=== PATIENT | female | born 1985 | race Caucasian/White ===

== ENCOUNTER 2017-01-30 13:14 | Emergency (ER) | payer BC ==
--- NOTE | 2017-01-30 13:47 | Emergency Department Record ---
History of Present Illness - General Chief Complaint: Abdominal Pain Stated Complaint: ABDOMINAL PAIN LRQ/ VAGINAL BLEEDING Time Seen by Provider: 01/30/17 13:39 Source: Patient, RN notes reviewed Mode of Arrival: Ambulatory - History of Present Illness Initial Comments: abdominal pain right upper quad, 3 weeks of right sided abd pain and vaginal bleeding and no dysuria and no diarrhea and today ate today and it didn't make the pain worse. Vaginal discharge blood. MD Complaint: Abdominal pain Onset/Timin -: Month(s) Location: RUQ, RLQ Quality: Fullness Consistency: Constant Improves With: Nothing Worsens With: Nothing - Related Data LMP Date: 01/27/17 LMP (females 10-50): This week Home Medications Medication Instructions Recorded Confirmed Last Taken Fluoxetine HCl [Prozac] 10 mg PO DAILY 01/30/17 01/30/17 01/30/17 Previous Rx's Medication Instructions Recorded Doxycycline Hyclate [Doxycycline] 100 mg PO BID #30 cap 01/30/17 Ferrous Sulfate [Feosol] 325 mg PO DAILY #30 tab 01/30/17 Naproxen [Naprosyn] 500 mg PO Q12H #20 tab. 01/30/17 Allergies Allergy/AdvReac Type Severity Reaction Status Date / Time Sulfa (Sulfonamide Allergy RASH Verified 01/30/17 13:25 Antibiotics) Travel Screening - Travel/Exposure Within Last 30 Days Have you traveled within the last 30 days?: No - Travel/Exposure Within Last Year Have you traveled outside the [place] in the last year?: No - Additonal Travel Details Have you been exposed to anyone with a communicable illness?: No - Travel Symptoms Symptom Screening: None Review of Systems Reviewed: No additional complaints except as noted below Constitutional: Reports: As per HPI. Denies: Chills, Fever, Malaise, Night sweats, Weakness, Weight change Eyes: Reports: As per HPI. Denies: Eye discharge, Eye pain, Photophobia, Vision change ENT: Reports: As per HPI. Denies: Congestion, Dental pain, Ear pain, Epistaxis , Hearing loss, Throat pain Respiratory: Reports: As per HPI. Denies: Cough, Dyspnea, Hemoptysis, Stridor, Wheezes Cardiovascular: Reports: As per HPI. Denies: Arrhythmia, Chest pain, Dyspnea on exertion, Edema, Murmurs, Orthopnea, Palpitations, Paroxysmal nocturnal dyspnea, Rheumatic Fever, Syncope Endocrine: Reports: As per HPI. Denies: Fatigue, Heat or cold intolerance, Polydipsia, Polyuria Gastrointestinal: Reports: As per HPI, Abdominal pain, Nausea. Denies: Constipation, Diarrhea, Hematemesis, Hematochezia, Melena, Vomiting Genitourinary: Reports: As per HPI. Denies: Abnormal menses, Discharge, Dyspareunia, Dysuria, Frequency, Hematuria, Incontinence, Retention, Urgency Musculoskeletal: Reports: As per HPI. Denies: Arthralgia, Back pain, Gout, Joint swelling, Myalgia, Neck pain Skin: Reports: As per HPI. Denies: Bruising, Change in color, Change in hair/ nails, Lesions, Pruritus, Rash Neurological: Reports: As per HPI. Denies: Abnormal gait, Confusion, Headache, Numbness, Paresthesias, Seizure, Tingling, Tremors, Vertigo, Weakness Psychiatric: Reports: As per HPI. Denies: Anxiety, Auditory hallucinations, Depression, Homicidal thoughts, Suicidal thoughts, Visual hallucinations Hematological/Lymphatic: Reports: As per HPI. Denies: Anemia, Blood Clots, Easy bleeding, Easy bruising, Swollen glands Past Medical History - SOCIAL HISTORY Smoking Status: Never smoker Alcohol Use: None Drug Use: None - RESPIRATORY Hx Respiratory Disorders: No - CARDIOVASCULAR Hx Cardio Disorders: No - NEURO Hx Neuro Disorders: No - GI Hx GI Disorders: No - Hx Genitourinary Disorders: No - ENDOCRINE Hx Endocrine Disorders: No - MUSCULOSKELETAL Hx Musculoskeletal Disorders: No - PSYCH Hx Psych Problems: Yes Hx Depression: Yes - HEMATOLOGY/ONCOLOGY Hx Hematology/Oncology Disorders: No Family Medical History Any Significant Family History?: Yes Hx Cancer: Grandparents Physical Exam - General General Appearance: Alert, Oriented x3, Cooperative, No acute distress - Head Head exam: Normal inspection - Eye Eye exam: Normal appearance, PERRL Pupils: Normal accommodation - ENT ENT exam: Normal exam, Mucous membranes moist, Normal external ear exam, Normal orophraynx, TM's normal bilaterally Ear exam: Normal external inspection. negative: External canal tenderness Nasal Exam: Normal inspection. negative: Discharge, Sinus tenderness Mouth exam: Normal external inspection, Tongue normal Teeth exam: Normal inspection. negative: Dental caries Throat exam: Normal inspection. negative: Tonsillar erythema, Tonsillar exudate - Neck Neck exam: Normal inspection, Full ROM. negative: Tenderness - Respiratory Respiratory exam: Normal lung sounds bilaterally. negative: Respiratory distress - Cardiovascular Cardiovascular Exam: Regular rate, Normal rhythm, Normal heart sounds - GI/Abdominal GI/Abdominal exam: Soft, Normal bowel sounds, Tenderness (right lower quad pain and radiates into the right flank) - Rectal Rectal exam: Deferred - exam: Adnexal tenderness (R), cervical motion tenderness, Normal speculum exam. negative: Abnormal external exam, Adnexal mass (L), Adnexal mass (R), Adnexal tenderness (L), Cervical discharge, Enlarged uterus, Vaginal bleeding, Vaginal discharge - Extremities Extremities exam: Normal inspection, Full ROM, Normal capillary refill. negative: Tenderness - Back Back exam: Reports: Normal inspection, Full ROM. Denies: Muscle spasm, Rash noted, Tenderness - Neurological Neurological exam: Alert, Normal gait, Oriented X3, Reflexes normal - Psychiatric Psychiatric exam: Normal affect, Normal mood - Skin Skin exam: Dry, Intact, Normal color, Warm Course Vital Signs 01/30/17 13:27 Temperature 98.8 F Pulse Rate 88 Respiratory 18 Rate Blood Pressure 127/85 Pulse Ox 97 Medical Decision Making - Data Complexity MDM Data: Labs Ordered and/or Reviewed, X-Ray Ordered and/or Reviewed (CT abd pelvis neg) - Lab Data Result diagrams: 01/30/17 14:25 01/30/17 14:25 Disposition Clinical Impression: Dysfunctional uterine bleeding, PID (acute pelvic inflammatory disease) Abdominal pain Qualifiers: Abdominal location: right lower quadrant Qualified Code(s): R10.31 - Right lower quadrant pain Anemia Qualifiers: Anemia type: iron deficiency Iron deficiency anemia type: chronic blood loss Qualified Code(s): D50.0 - Iron deficiency anemia secondary to blood loss ( chronic) Disposition: Home, Self-Care Condition: (1) Good Instructions: Dysfunctional Uterine Bleeding (ED), Iron Deficiency Anemia (ED) , Pelvic Inflammatory Disease (ED) Additional Instructions: follow up with family in 5 days Prescriptions: Doxycycline Hyclate [Doxycycline] 100 mg PO BID #30 cap Ferrous Sulfate [Feosol] 325 mg PO DAILY #30 tab Naproxen [Naprosyn] 500 mg PO Q12H #20 tab.dr Forms: Patient Portal Access Time of Disposition: 17:44 Quality - Quality Measures Quality Measures: N/A - Blood Pressure Screening Does Patient Have Any of the Following: No Blood Pressure Classification: Pre-Hypertensive BP Reading Systolic Measurement: 127 Diastolic Measurement: 85 Screening for High Blood Pressure: < Pre-Hypertensive BP, F/U Documented > [ G8950] Pre-Hypertensive Follow-up Interventions: Referral to alternative/primary care provider.
[2017-01-30 13:53] LABS: URINE APPEARANCE CLEAR; URINE BILIRUBIN SMALL (NEGATIVE); URINE BLOOD NEGATIVE (NEGATIVE); URINE COLOR YELLOW; URINE GLUCOSE (UA) NEGATIVE (NEGATIVE); URINE KETONE 40 mg/dL (NEGATIVE); URINE LEUKOCYTE ESTERASE NEGATIVE (NEGATIVE); URINE NITRITE NEGATIVE (NEGATIVE); URINE PROTEIN TRACE (NEGATIVE); URINE UROBILINOGEN 0.2 E.U./dL (0.20 - 1.00)
[2017-01-30 13:55] LABS: HCG,QUALITATIVE URINE NEGATIVE (NEGATIVE)
[2017-01-30] MEDS ORDERED: 0.9 % SODIUM CHLORIDE 1,000 ML BAG IV ONE (14:02)
[2017-01-30 14:34] LABS: BASO % 0.5 % (0-6); EOS % 2.3 % (0-6); GRAN % 57.3 % (47-80); HEMATOCRIT 30.7 % (35.0-47.0); HEMOGLOBIN 9.7 gm/dl (11.6-16.0); MEAN CELL VOLUME 78.3 fl (81-97); MEAN CORPUSCULAR HEMOGLOBIN 24.7 pg (27-33); MEAN CORPUSCULAR HGB CONC 31.6 g/dl (32-36); MEAN PLATELET VOLUME 9.6 fl (7.4-10.4); MONO % 7.9 % (0-9); PLATELET COUNT 277 K/uL (130-400); RED BLOOD COUNT 3.92 M/uL (3.80-5.40); RED CELL DISTRIBUTION WIDTH 14.9 % (11.5-14.5); WHITE BLOOD COUNT W/O DIFF 6.2 K/uL (4.2-12.2)
[2017-01-30 15:05] LABS: ALBUMIN 3.9 g/dL (4.0-5.0); ALKALINE PHOSPHATASE 54 U/L (35-104); ALT/SGPT 20 U/L (<33); AST/SGOT 21 U/L (10.0-35.0); BLOOD UREA NITROGEN 10 mg/dL (6-20); CREATININE 0.8 mg/dL (0.5-0.9); EST GLOMERULAR FILTRATION RATE > 60 mL/min; GLUCOSE,RANDOM 93 mg/dL (74-109); LIPASE 28 U/L (13-60); TOTAL PROTEIN 7.2 g/dL (6.6-8.7)
[2017-01-30 15:07] LABS: BILIRUBIN,DIRECT < 0.2 mg/dL (0-0.3)
[2017-01-30] MEDS ORDERED: ONDANSETRON HCL IV 4 MG/2 ML VIAL IVP ONE (15:23)
[2017-01-30] MEDS ORDERED: KETOROLAC 30 MG/ML VIAL IVP ONE (15:50)
--- NOTE | 2017-01-31 12:09 | CT SCAN REPORT ---
EXAM: CT OF THE ABDOMEN AND PELVIS HISTORY: RIGHT LOWER ABDOMINAL PAIN. TECHNIQUE: CT of the abdomen and pelvis was performed without oral or IV contrast. This limits evaluation of bowel and solid visceral organs. Comparison: None. FINDINGS: Limited evaluation of the lung bases is unremarkable. The osseous structures are grossly intact. Limited evaluation of the liver, spleen, adrenal glands, pancreas, and kidneys is unremarkable. Negative for urinary tract calculus or hydronephrosis. Status post cholecystectomy. No gross evidence for bowel obstruction. Abundant stool in the colon. Normal appendix. No free air or free fluid. The urinary bladder is not distended, limiting its evaluation. IMPRESSION: NEGATIVE FOR AN ACUTE INTRAABDOMINAL/PELVIC PROCESS. JOB NUMBER: [id number] MTDD
--- NOTE | 2017-01-31 12:15 | ULTRASOUND REPORT ---
EXAM: ULTRASOUND EXAMINATION OF THE PELVIS HISTORY: PATIENT HAS RIGHT LOWER QUADRANT PAIN. TECHNIQUE: Real-time morales scale transabdominal and transvaginal ultrasound examination of the pelvis was provided. Comparison: CT scan of the abdomen and pelvis dated 01/30/17 is provided. FINDINGS: The uterus measures 10.1 cm x 4.8 cm x 6.1 cm. The endometrial stripe measures 8 mm in thickness. This finding is within normal limits. Mild fluid is noted within the lower uterine segment of the endometrial canal. The contour, size and echotexture of the uterus are within normal limits. No obvious focal uterine lesions are identified. The right ovary measures 2.58 cm x 1.65 cm x 2.9 cm. The left ovary measures 3.25 cm x 2.09 cm x 2.37 cm. The contour, size, and echotexture's of both ovaries are within normal limits. Within the left ovary there is a 1.7 cm x 1.7 cm x 1.1 cm simple cyst. Multiple nabothian cysts are identified within the cervix. No significant free fluid is noted within the posterior cul-de-sac. There are mildly distended vessels adjacent to the left ovary and the left adnexal region, however, no obvious periuterine vessels are noted within the comparison CT scan. IMPRESSION: 1. NO SONOGRAPHIC EVIDENCE OF AN ACUTE PROCESS INVOLVING THE PELVIS. 2. NABOTHIAN CYSTS ARE NOTED DISCUSSED ABOVE. JOB NUMBER: [id number] [facility]
[2017-01-31 15:42] LABS: GC SPECIMEN TYPE Vaginal
== END 2017-01-30 18:18 | disposition home or self-care (01) ==
LOC: MERGE 13:14 → ER 13:14
DX: N93.8 Other specified abnormal uterine and vaginal bleeding (principal); D50.0 Iron deficiency anemia secondary to blood loss (chronic); N73.9 Female pelvic inflammatory disease, unspecified
CPT/HCPCS: 99284 ×2; 96374; 96375; 83540; 83690; 85025; 80076; 80048; 81003; 81025; 76856; 76830; 74176; Q0111; J1885; J2405; 87210; J7030

== ENCOUNTER 2017-02-05 05:51 | Emergency (ER) | payer BC ==
--- NOTE | 2017-02-05 06:19 | Emergency Department Record ---
History of Present Illness - General Source: Patient Mode of Arrival: Ambulatory Limitations: No limitations - History of Present Illness Initial Comments: 31 female presents with concerns about feeling weak, tired, abdominal pain for about 4 weeks. She was seen in the ED on 02/01. She has concerns that her anemia is worse. She has known anemia from the recent ED visit. Her initial visit included a CT scan, US of the abdomen, labs, and pelvic examination. She did follow up with her PCP. She got a Depo shot during the follow up visit with the PCP for some ongoing vaginal bleeding. She reports that she had two menstrual cycles in the month of December. Her bleeding has nearly completed subsided. She has had a bloated feeling over the last 4 weeks. She did have some nausea this morning and vomited once. No fevers. No diarrhea. She has had her gall bladder removed and a tubal ligation. The Hgb on 02/01 was 9.7. MD Complaint: Abdominal pain, Other (Weakness) -: Days(s) Location: RUQ, RLQ Radiation: RUQ, RLQ Severity: Moderate Quality: Cramping Consistency: Intermittent Improves With: Nothing Worsens With: Nothing Associated Symptoms: Anorexia <RUPESH JESUS - Last Filed: 02/05/17 07:05> <Estrella Lara - Last Filed: 02/05/17 07:28> - General Chief Complaint: Weakness Stated Complaint: ABDOMINAL PAIN Time Seen by Provider: 02/05/17 05:55 - Related Data Home Medications Medication Instructions Recorded Confirmed Last Taken Medroxyprogesterone Acetate [Depo 150 mg IM ASDIR 02/05/17 02/05/17 Unknown Provera] Previous Rx's Medication Instructions Recorded Doxycycline Hyclate [Doxycycline] 100 mg PO BID #30 cap 01/30/17 Ferrous Sulfate [Feosol] 325 mg PO DAILY #30 tab 01/30/17 Naproxen [Naprosyn] 500 mg PO Q12H #20 tab 01/30/17 Ondansetron [Zofran Odt] 4 mg PO Q8H #20 tabcamilla 02/05/17 Allergies Allergy/AdvReac Type Severity Reaction Status Date / Time Sulfa (Sulfonamide Allergy RASH Verified 01/30/17 13:25 Antibiotics) Review of Systems Constitutional: Reports: Malaise, Weakness. Denies: Chills, Fever Eyes: Denies: Eye discharge, Eye pain, Photophobia, Vision change ENT: Denies: Congestion, Throat pain Respiratory: Denies: Cough, Dyspnea, Hemoptysis, Stridor, Wheezes Cardiovascular: Denies: Chest pain, Palpitations, Syncope Endocrine: Reports: Fatigue. Denies: Polydipsia, Polyuria Gastrointestinal: Reports: As per HPI, Abdominal pain, Nausea, Vomiting. Denies : Constipation, Diarrhea, Hematemesis, Hematochezia Genitourinary: Reports: As per HPI, Abnormal menses. Denies: Dysuria, Urgency Musculoskeletal: Denies: Arthralgia, Back pain, Myalgia Skin: Denies: Bruising, Change in color, Rash Neurological: Denies: Headache, Numbness, Vertigo, Weakness Psychiatric: Denies: Anxiety Hematological/Lymphatic: Denies: Blood Clots, Easy bleeding, Easy bruising, Swollen glands <RUPESH JESUS - Last Filed: 02/05/17 07:05> Past Medical History - SOCIAL HISTORY Smoking Status: Never smoker Drug Use: None - RESPIRATORY Hx Respiratory Disorders: No - CARDIOVASCULAR Hx Cardio Disorders: No - NEURO Hx Neuro Disorders: No - GI Hx GI Disorders: No - Hx Genitourinary Disorders: No - ENDOCRINE Hx Endocrine Disorders: No - MUSCULOSKELETAL Hx Musculoskeletal Disorders: No - PSYCH Hx Psych Problems: Yes Hx Depression: Yes - HEMATOLOGY/ONCOLOGY Hx Hematology/Oncology Disorders: No <RUPESH JESUS - Last Filed: 02/05/17 07:05> Family Medical History Hx Cancer: Grandparents <RUPESH JESUS - Last Filed: 02/05/17 07:05> Physical Exam - General General Appearance: Alert, Oriented x3, Cooperative, No acute distress - Head Head exam: Atraumatic, Normocephalic, Normal inspection - Eye Eye exam: Normal appearance. negative: Conjunctival injection, Periorbital swelling, Scleral icterus - ENT ENT exam: Normal exam, Mucous membranes moist Ear exam: Normal external inspection Nasal Exam: Normal inspection Mouth exam: Normal external inspection - Neck Neck exam: Normal inspection - Respiratory Respiratory exam: Normal lung sounds bilaterally. negative: Respiratory distress - Cardiovascular Cardiovascular Exam: Regular rate, Normal rhythm, Normal heart sounds - GI/Abdominal GI/Abdominal exam: Soft, Tenderness (mild RUQ and RLQ, very soft, no mass or hernia). negative: Distended, Guarding, Rebound, Rigid - Rectal Rectal exam: Deferred - exam: Deferred - Extremities Extremities exam: Normal inspection - Back Back exam: Reports: Normal inspection, Full ROM. Denies: CVA tenderness (R), CVA tenderness (L), Muscle spasm, Rash noted, Tenderness - Neurological Neurological exam: Alert, Oriented X3 - Psychiatric Psychiatric exam: negative: Agitated, Anxious - Skin Skin exam: Dry, Intact, Normal color, Warm. negative: Cyanosis, Diaphoretic, Mottled <RUPESH JESUS - Last Filed: 02/05/17 07:05> Course Vital Signs 02/05/17 05:56 Temperature 98.2 F Pulse Rate [ 89 Pulse Ox Probe] Respiratory 20 Rate Blood Pressure 138/106 [Left Arm] Pulse Ox 98 - Reevaluation(s) Reevaluation #1: Vitals were reviewed. EMR reviewed The CT and US of the abdomen on 02/01 were negative The wet prep and vaginal cultures were negative 02/05/17 06:07 02/05/17 06:24 02/05/17 06:51 Hgb today is 10.7 improved from prior visit 02/05/17 07:05 UA is negative <RUPESH JESUS - Last Filed: 02/05/17 07:05> Vital Signs 02/05/17 05:56 Temperature 98.2 F Pulse Rate [ 89 Pulse Ox Probe] Respiratory 20 Rate Blood Pressure 138/106 [Left Arm] Pulse Ox 98 <Estrella Lara L - Last Filed: 02/05/17 07:28> Medical Decision Making - Lab Data Result diagrams: 02/05/17 06:35 02/05/17 06:19 <RUPESH JESUS - Last Filed: 02/05/17 07:05> - Lab Data Result diagrams: 02/05/17 06:35 02/05/17 06:50 Lab Results 02/05/17 02/05/17 02/05/17 Range/Units 06:19 06:35 06:50 WBC 6.1 (4.2-12.2) K/uL RBC 4.17 (3.80-5.40) M/uL Hgb 10.7 L (11.6-16.0) gm/dl Hct 33.1 L (35.0-47.0) % MCV 79.4 L (81-97) fl MCH 25.6 L (27-33) pg MCHC 32.3 (32-36) g/dl RDW 15.3 H (11.5-14.5) % Plt Count 245 (130-400) K/uL MPV 10.9 H (7.4-10.4) fl Gran % 64.5 (47-80) % Lymphocytes % 24.5 (16-45) % Monocytes % 7.9 (0-9) % Eosinophils % 2.6 (0-6) % Basophils % 0.5 (0-6) % Sodium 132 L (136-145) mmol/L Potassium 4.2 (3.4-4.5) mmol/L Chloride 101 (98-107) mmol/L Carbon Dioxide 19.0 L (22-29) mmol/L Anion Gap 12.0 (7-16) BUN 14 (6-20) mg/dL Creatinine 0.7 (0.5-0.9) mg/dL Estimated GFR > 60 mL/min Random Glucose 95 (74-109) mg/dL Calcium 8.4 L (8.6-10.0) mg/dL Total Bilirubin 0.30 (0.2-1.0) mg/dL AST 17 (10.0-35.0) U/L ALT 24 (<33) U/L Alkaline Phosphatase 46 (35-104) U/L Total Protein 7.0 (6.6-8.7) g/dL Albumin 3.7 L (4.0-5.0) g/dL Globulin 3.3 (1.4-4.8) gm/dL Albumin/Globulin Ratio 1.1 (1.1-1.8) TSH 3.12 (0.270-4.20) uIU/mL Urine Color Urine Appearance Urine pH (5.0-8.0) Ur Specific [place] (1.002-1.030) Urine Protein (NEGATIVE) Urine Glucose (UA) (NEGATIVE) Urine Ketones (NEGATIVE) Urine Blood (NEGATIVE) Urine Nitrite (NEGATIVE) Urine Bilirubin (NEGATIVE) Urine Urobilinogen (0.20 - 1.00) E.U./dL Ur Leukocyte Esterase (NEGATIVE) Urine HCG, Qual (NEGATIVE) ABO Group Cancelled Rh Factor Cancelled Antibody Screen Cancelled 02/05/17 Range/Units 06:55 WBC (4.2-12.2) K/uL RBC (3.80-5.40) M/uL Hgb (11.6-16.0) gm/dl Hct (35.0-47.0) % MCV (81-97) fl MCH (27-33) pg MCHC (32-36) g/dl RDW (11.5-14.5) % Plt Count (130-400) K/uL MPV (7.4-10.4) fl Gran % (47-80) % Lymphocytes % (16-45) % Monocytes % (0-9) % Eosinophils % (0-6) % Basophils % (0-6) % Sodium (136-145) mmol/L Potassium (3.4-4.5) mmol/L Chloride (98-107) mmol/L Carbon Dioxide (22-29) mmol/L Anion Gap (7-16) BUN (6-20) mg/dL Creatinine (0.5-0.9) mg/dL Estimated GFR mL/min Random Glucose (74-109) mg/dL Calcium (8.6-10.0) mg/dL Total Bilirubin (0.2-1.0) mg/dL AST (10.0-35.0) U/L ALT (<33) U/L Alkaline Phosphatase (35-104) U/L Total Protein (6.6-8.7) g/dL Albumin (4.0-5.0) g/dL Globulin (1.4-4.8) gm/dL Albumin/Globulin Ratio (1.1-1.8) TSH (0.270-4.20) uIU/mL Urine Color Yellow Urine Appearance Clear Urine pH 7.0 (5.0-8.0) Ur Specific [place] 1.020 (1.002-1.030) Urine Protein Negative (NEGATIVE) Urine Glucose (UA) Negative (NEGATIVE) Urine Ketones Negative (NEGATIVE) Urine Blood Negative (NEGATIVE) Urine Nitrite Negative (NEGATIVE) Urine Bilirubin Negative (NEGATIVE) Urine Urobilinogen 0.2 (0.20 - 1.00) E.U./dL Ur Leukocyte Esterase Negative (NEGATIVE) Urine HCG, Qual Negative (NEGATIVE) ABO Group Rh Factor Antibody Screen <Estrella Lara - Last Filed: 02/05/17 07:28> Disposition Disposition: Discharge Time of Disposition: 07:05 <RUPESH JESUS - Last Filed: 02/05/17 07:05> Disposition: Discharge <Estrella Lara - Last Filed: 02/05/17 07:28> Clinical Impression: Anemia Qualifiers: Anemia type: iron deficiency Abdominal pain Qualifiers: Abdominal location: right lower quadrant Qualified Code(s): R10.31 - Right lower quadrant pain Disposition: Home, Self-Care Condition: (1) Good Instructions: Iron Deficiency Anemia (ED) Additional Instructions: Call your doctor for follow up this next week with your symptoms Return if worse, fever, pain, vomiting or new concerns. Prescriptions: Ondansetron [Zofran Odt] 4 mg PO Q8H #20 tab.rapdis Forms: Patient Portal Access Quality - Quality Measures Quality Measures: N/A - Blood Pressure Screening Does Patient Have Any of the Following: No Blood Pressure Classification: Hypertensive Reading Systolic Measurement: 138 Diastolic Measurement: 106 Screening for High Blood Pressure: < Pre-Hypertensive BP, F/U Documented > [ G8950] Pre-Hypertensive Follow-up Interventions: Referral to alternative/primary care provider. <RUPESH JESUS - Last Filed: 02/05/17 07:05> - Blood Pressure Screening Does Patient Have Any of the Following: No Blood Pressure Classification: Hypertensive Reading Systolic Measurement: 138 Diastolic Measurement: 106 <Estrella Lara - Last Filed: 02/05/17 07:28>
[2017-02-05] MEDS: ONDANSETRON 4 MG ODT TABLET SL ONE (06:22)
[2017-02-05 06:42] LABS: BASO % 0.5 % (0-6); EOS % 2.6 % (0-6); GRAN % 64.5 % (47-80); HEMATOCRIT 33.1 % (35.0-47.0); HEMOGLOBIN 10.7 gm/dl (11.6-16.0); LYMPH % 24.5 % (16-45); MEAN CELL VOLUME 79.4 fl (81-97); MEAN CORPUSCULAR HEMOGLOBIN 25.6 pg (27-33); MEAN CORPUSCULAR HGB CONC 32.3 g/dl (32-36); MEAN PLATELET VOLUME 10.9 fl (7.4-10.4); MONO % 7.9 % (0-9); PLATELET COUNT 245 K/uL (130-400); RED BLOOD COUNT 4.17 M/uL (3.80-5.40); RED CELL DISTRIBUTION WIDTH 15.3 % (11.5-14.5); WHITE BLOOD COUNT W/O DIFF 6.1 K/uL (4.2-12.2)
[2017-02-05 06:52] LABS: URINE APPEARANCE CLEAR; URINE BILIRUBIN NEGATIVE (NEGATIVE); URINE BLOOD NEGATIVE (NEGATIVE); URINE COLOR YELLOW; URINE GLUCOSE (UA) NEGATIVE (NEGATIVE); URINE KETONE NEGATIVE (NEGATIVE); URINE LEUKOCYTE ESTERASE NEGATIVE (NEGATIVE); URINE NITRITE NEGATIVE (NEGATIVE); URINE PROTEIN NEGATIVE (NEGATIVE); URINE UROBILINOGEN 0.2 E.U./dL (0.20 - 1.00)
[2017-02-05 06:55] LABS: HCG,QUALITATIVE URINE NEGATIVE (NEGATIVE)
[2017-02-05 07:22] LABS: ALB/GLOB RATIO 1.1 (1.1-1.8); ALBUMIN 3.7 g/dL (4.0-5.0); ALKALINE PHOSPHATASE 46 U/L (35-104); ALT/SGPT 24 U/L (<33); AST/SGOT 17 U/L (10.0-35.0); BLOOD UREA NITROGEN 14 mg/dL (6-20); CREATININE 0.7 mg/dL (0.5-0.9); EST GLOMERULAR FILTRATION RATE > 60 mL/min; GLUCOSE,RANDOM 95 mg/dL (74-109)
[2017-02-05 07:26] LABS: THYROID STIMULATING HORMONE 3.12 uIU/mL (0.270-4.20)
== END 2017-02-05 07:43 | disposition home or self-care (01) ==
LOC: ER 05:51
DX: R10.31 Right lower quadrant pain (principal); R53.1 Weakness; D50.9 Iron deficiency anemia, unspecified; R63.0 Anorexia
CPT/HCPCS: 80053; 81003; 81025; 84443; 85025; 99283